=== PATIENT | female | born 2000 | race Caucasian/White ===

== ENCOUNTER 2025-01-11 17:13 | Emergency (ER) | payer MEDICAID ==
[~2025-01-11] VITALS: Ht 170.2 cm; Wt 75.5 kg
[2025-01-11 17:16] VITALS: O2SAT 98
[2025-01-11] MEDS ORDERED: methylPREDNISolone acetate 80mg/ml inj**IM only IM STA (18:36)
--- NOTE | 2025-01-11 18:52 | Physician Documentation ---
History of Present Illness ~ Chief Complaint: Rash Stated Complaint: POISON OAK Time Seen by MD: 17:52 HPI Patient is seen today with complaints of poison oak dermatitis that 1st popped up a few days ago. Patient states she was originally seen in [place] and got a prescription for steroid but never picked up the prescription and now the rash is getting worse. Patient denies any shortness of breath or trouble breathing or chest pain or abdominal pain or nausea, vomiting, diarrhea or fevers. She has no other concern or complaint at this time. Medication Reconciliation Allergies: Coded Allergies: No Known Allergies (Unverified , 01/11/25) Review of Systems Constitutional: Denies: chills, fever, weakness Eyes: Denies: pain, blurred vision ENT: Denies: ear pain, nose pain, throat pain, mouth pain Respiratory: Denies: cough, shortness of breath Cardiovascular: Denies: chest pain, palpitations Gastrointestinal: Denies: abdominal pain, nausea, vomiting Genitourinary: Denies: burning, dysuria Female Genitalia: Denies: vaginal discharge, pelvic pain Neurological: Denies: headache, dizziness Musculoskeletal: Denies: pain, swelling Integumentary: Denies: rash, lesions Allergic/Immunologic: Denies: hives, itching Hematologic/Lymphatic: Denies: no symptoms reported Psychiatric: Denies: depression, anxiety Physical Exam Vital Signs: Temperature: 97.8, Source: Temporal, Heart Rate: 67, Respiratory Rate: 18, BP: 118/49, Pulse Oximetry: 98, Weight: 75.450 Physical Exam General: Awake and Alert, no acute distress. HEENT: Conjunctiva pink, Sclera clear, Mucus Membranes moist. Neck: Supple without masses and tenderness. Resp: Unlabored. Lungs clear to auscultation bilaterally. Heart: Regular Rate and rhythm, normal S1 and S2 without murmur, rub or gallop. Extremities: No cyanosis,clubbing or edema. Skin: Patient on exam does have significant contact dermatitis rash of her upper arms with blister formation consistent with poison oak dermatitis. Progress Results/Orders Results/Orders Orders - RADHA ELIZONDO PAC Methylprednisolone Acetate*Im* ([facility] (01/11/25 18:36) Vital Signs 01/11/25 01/11/25 17:16 18:42 Temp 97.8 Pulse 67 Resp 18 B/P (MAP) 118/49 Pulse Ox 98 Medical Decision Making Findings Patient is seen today with complaints of poison oak dermatitis that 1st popped up a few days ago. Patient states she was originally seen in [place] and got a prescription for steroid but never picked up the prescription and now the rash is getting worse. Patient denies any shortness of breath or trouble breathing or chest pain or abdominal pain or nausea, vomiting, diarrhea or fevers. She has no other concern or complaint at this time. Patient was given dose of Kenalog 80 mg IM in the ED today. Patient states they have prescription waiting for them at home in [place] and declined prescription of steroid taper at this time. They will follow up with primary care in 2-5 days if no better as needed sooner. Return to ED with any worsening, concerning or changing symptoms. Departure Disposition: 01 HOME / SELF CARE / HOMELESS Impression: Primary Impression: Allergic contact dermatitis Qualified Codes: L23.7 - Allergic contact dermatitis due to plants, except f ood Condition: Stable Discharge Instructions: Contact Dermatitis Additional Instructions: Patient was given dose of Kenalog 80 mg IM in the ED today. Patient states they have prescription waiting for them at home in [place] and declined prescription of steroid taper at this time. They will follow up with primary care in 2-5 days if no better as needed sooner. Return to ED with any worsening, concerning or changing symptoms. Referrals: NO PRIMARY CARE PROVIDER (PCP) Signature Scribe Signature: No scribe Attestation: No scribe RADHA ELIZONDO PAC Jan 11, 2025 18:52
[2025-01-11] MEDS: triamcinolone acetonide 40mg/ml inj IM STA (19:04)
[2025-01-11 19:28] VITALS: BP 140/77; PULSE 65; RESP 16; TEMP 97.8
== END 2025-01-11 19:30 | disposition home or self-care (01) ==
LOC: ER 17:15
DX: L23.7 Allergic contact dermatitis due to plants, except food (principal)
CPT/HCPCS: 96372; 99283; J3301